=== PATIENT | male | born 1985 | race Asian ===

== ENCOUNTER 2016-12-14 22:48 | Emergency (ER) | payer OTHER ==
[2016-12-14 23:07] VITALS: BP 122/63; PULSE 68; RESP 16; TEMP 98.1; O2SAT 97
--- NOTE | 2016-12-14 23:14 | EDPHY ---
H & P Stated Complaint: R little finger lac HPI/ROS: HPI CHIEF COMPLAINT: Right hand laceration HISTORY OF PRESENT ILLNESS: This patient is a 31-year-old male otherwise healthy no significant medical history tells me his tetanus shot is up-to-date, he presents emergency room with a less than 0.5 cm laceration to the 5th digit dorsal side. Right hand. He states he was washing dishes the dish broke at the [employer] he is staying at. Denies any other significant complaints of trauma. He is neurovascular intact. Good cap refill. Full range of motion. No tendon vomit. No arterial vomit. Past Medical History: No medical history Past Surgical History: No surgical history Social History: Resides in [facility]. Family History: Noncontributory ROS REVIEW OF SYSTEMS: A comprehensive 10 point review of systems is otherwise negative aside from elements mentioned in the history of present illness. Exam Constitutional appears well nontoxic triage nursing summary reviewed, vital signs reviewed, awake/alert. Eyes normal conjunctivae and sclera, EOMI, PERRLA. HENT normal inspection, atraumatic, moist mucus membranes, no epistaxis, neck supple/ no meningismus, no raccoon eyes. Respiratory clear to auscultation bilaterally, normal breath sounds, no respiratory distress, no wheezing. Cardiovascular rate normal, regular rhythm, no murmur, no edema, distal pulses normal. Gastrointestinal soft, non-tender, no rebound, no guarding, normal bowel sounds, no distension, no pulsatile mass. Genitourinary no CVA tenderness. Musculoskeletal no midline vertebral tenderness, full range of motion, no calf swelling, no tenderness of extremities, no meningismus, good pulses, neurovascularly intact. Skin right hand: Neurovascular intact. 5th digit dorsal side there is a 0.5 cm laceration present. Distal aspect of the digit. No tendon involvement. No arterial vomit. No bony involvement. No foreign bodies visualized. Neurovascular intact. Good cap refill. Full range of motion but pink, warm, & dry, no rash, skin atraumatic. Neurologic awake, alert and oriented x 3, AAOx3, moves all 4 extremities equally, motor intact, sensory intact, CN II-XII intact, normal cerebellar, normal vision, normal speech. Psychiatric normal mood/affect. Heme/Lymph/Immune no lymphadenopathy. Differential Diagnosis: Includes but is not limited to in a particular order finger laceration, soft tissue injury, contusion, tendon injury Medical Decision Making: This patient on exam is full range of motion. No obvious tendon injury. His laceration will need to be copiously irrigating clean. His tetanus shot is up-to-date. His laceration will need to be repaired. Re-evaluation: Laceration Repair Procedure: Verbal Consent was obtained, Under sterile conditions, The patient had lidocaine with epinephrine used approximately 3ccs to local anesthetize the right hand 5th digit distal aspect dorsal side 0.5 cm laceration. The wound was copiously irrigated with sterile fluid, the wound was explored for foreign bodies there were none visualized, the wound was explored with a sterile glove to the base. There are no deep structures involved, including no arterial injury. ONE 6.O Prolene interrupted Sutures were placed in this patient's laceration. He had good close approximation of the wound edges. He Tolerated this well. Patient be placed in a splint for comfort and protection. Patient understands to have sutures removed in 12-14 days. Keep his wound clean dry and intact. Protected. Watch for infection. Warm soapy water spine after 24-48hours. He understands. Source: Patient - Personal History Current Tetanus/Diphtheria Vaccine: Yes Current Tetanus Diphtheria and Acellular Pertussis (TDAP): Yes - Medical/Surgical History Hx Asthma: No Hx Chronic Respiratory Disease: No Hx Diabetes: No Hx Cardiac Disease: No Hx Renal Disease: No Hx Cirrhosis: No Hx Alcoholism: No Hx HIV/AIDS: No Hx Splenectomy or Spleen Trauma: No Other PMH: denies - Social History Smoking Status: Never smoked Constitutional: Initial Vital Signs Temperature (C) 36.7 C 12/14/16 23:05 Heart Rate 68 12/14/16 23:05 Respiratory Rate 16 12/14/16 23:05 Blood Pressure 122/63 H 12/14/16 23:05 O2 Sat (%) 97 12/14/16 23:05 O2 Delivery Mode Room Air Allergies/Adverse Reactions: Penicillins Allergy (Verified 12/14/16 23:05) Home Medications: Medication Instructions Recorded Prozac 20 MG (*) 12/14/16 Departure - Departure Disposition: Home, Routine, Self-Care Clinical Impression: Laceration Condition: Good Instructions: Finger Laceration (ED) Additional Instructions: 1. Your sutures need to be removed in 12-14 days. 2. Keep your wound protected dry and intact and clean. 3. Return emergency room if you have any worsening symptoms questions or concerns. Referrals: NONE *PRIMARY CARE P,. [Primary Care Provider] - As per Instructions
== END 2016-12-14 23:47 | disposition home or self-care (01) ==
PROC: 0HQFXZZ Repair Right Hand Skin, External Approach (ICD-10-PCS; principal; 2016-12-14)
DX: S61.216A Laceration without foreign body of right little finger without damage to nail, initial encounter (principal); W45.8XXA Other foreign body or object entering through skin, initial encounter; Y99.8 Other external cause status; Y93.G1 Activity, food preparation and clean up
CPT/HCPCS: L3925